=== PATIENT | male | born 1975 | race Hispanic/Latino ===

== ENCOUNTER 2023-05-05 00:10 | Observation (INO) | payer SELFPAY ==
[2023-05-05] MEDS ORDERED: Morphine 4 MG/ML VIAL SLOW IVP PRN (01:55)
[2023-05-05 02:17] VITALS: BMI 33.6
[2023-05-05] MEDS: Lactated Ringer's 1,000 ML IV SCH ×2 (02:30→09:14)
[2023-05-05 07:14] LABS: Anion Gap 13 mmol/L (10-20); BUN (Urea Nitrogen) 13 mg/dL (8.9-20.6); Calc. Creatinine Clearance 140 mL/min (70-130); Calcium 8.7 mg/dL (7.8-10.44); Carbon Dioxide 25 mmol/L (22-29); Chloride 106 mmol/L (98-107); Estimated GFR 105; Glucose 86 mg/dL (70-105); Potassium 4.3 mmol/L (3.5-5.1); Sodium 140 mmol/L (136-145)
[2023-05-05] MEDS ORDERED: Ondansetron ODT 4 MG TAB PO PRN (07:35)
[2023-05-05] MEDS ORDERED: Pantoprazole 40 MG VIAL IVP SCH (09:00)
[2023-05-05] MEDS ORDERED: Acetaminophen 500 MG TAB PO PRN (09:42)
[2023-05-05] MEDS ORDERED: MD-Gastroview 120 ML BOT ONE (10:49)
[2023-05-05 12:42] VITALS: BP 136/89; TEMP 97.7
[2023-05-05] MEDS ORDERED: Apixaban 5 MG TAB PO SCH (21:00)
== END 2023-05-05 14:40 | disposition home or self-care (01) ==
LOC: SURG B 00:58
PROVIDERS: ADMIT Specialist; ATTEND Specialist
DX: R10.9 Unspecified abdominal pain (principal); K43.2 Incisional hernia without obstruction or gangrene; I73.9 Peripheral vascular disease, unspecified; Z86.010 Personal history of colon polyps; Z79.01 Long term (current) use of anticoagulants; Z88.8 Allergy status to other drugs, medicaments and biological substances; Z88.1 Allergy status to other antibiotic agents; Z86.718 Personal history of other venous thrombosis and embolism; Z95.5 Presence of coronary angioplasty implant and graft; Z79.899 Other long term (current) drug therapy
CPT/HCPCS: 36415; 74022; 74250; 80048; 96372; 96374; C9113; G0378; J1650; J2270; J7120; Q0162; Q9963